=== PATIENT | female | born 1945 | race Caucasian/White ===

== ENCOUNTER 2017-05-03 12:09 | Emergency (ER) | payer OTHER ==
[~2017-05-03] VITALS: Ht 170.2 cm; Wt 122.5 kg
[~2017-05-03 12:09] MED LIST: AMLODIPINE PO; ANT12.5 PO; BENAZEPRIL PO; DETROL LA2 MG PO; METOPROLOL TART25 M1 PO; PRI20 PO; ZOCOR20 MG PO
[2017-05-03 14:58] LABS: BASOPHIL % 1.6 % (0-2); PLATELET COUNT 227 x10^3mcL (130-400)
[2017-05-03 15:02] LABS: RED CELL DISTRIBUTION WIDTH 14.8 % (11.5-14.5)
[2017-05-03 15:03] LABS: CARBON DIOXIDE 27.5 mmol/L (21-32)
[2017-05-03 15:07] LABS: BILIRUBIN TOTAL 0.7 mg/dL (0.20-1.00)
[2017-05-03 15:12] LABS: ALBUMIN 3.2 g/dL (3.4-5.0)
[2017-05-03 17:33] VITALS: BP 138/76
[2017-05-03 22:39] LABS: ERYTHROCYTE SED RATE 59 mm/hr (0-30)
== END 2017-05-03 18:13 | disposition home or self-care (01) ==
LOC: ED 12:09
PROVIDERS: Emergency Medicine
DX: M25.562 Pain in left knee (principal); I48.91 Unspecified atrial fibrillation; K21.9 Gastro-esophageal reflux disease without esophagitis; I10 Essential (primary) hypertension; F17.200 Nicotine dependence, unspecified, uncomplicated; Z71.6 Tobacco abuse counseling; Z88.5 Allergy status to narcotic agent; Z88.8 Allergy status to other drugs, medicaments and biological substances
CPT/HCPCS: 36415; 99406; Q0092

== ENCOUNTER 2017-05-15 14:03 | Inpatient (IN) | payer OTHER ==
[~2017-05-15] VITALS: Ht 170.2 cm; Wt 103.9 kg
[2017-05-15 15:18] LABS: BASOPHIL % 0.5 % (0-2); PLATELET COUNT 171 x10^3mcL (130-400); RED CELL DISTRIBUTION WIDTH 14.4 % (11.5-14.5)
[2017-05-15 15:22] LABS: CALCIUM 8.7 mg/dL (8.5-10.1); CARBON DIOXIDE 27.7 mmol/L (21-32); CHLORIDE SERUM 104 mmol/L (98-107); CREATININE SERUM 0.9 mg/dL (0.6-1.0); GFR1 > 60 mL/min; GLUCOSE SERUM 108 mg/dL (74-106); POTASSIUM SERUM 3.5 mmol/L (3.5-5.1); SODIUM SERUM 139 mmol/L (136-145)
[2017-05-15 15:26] LABS: ALKALINE PHOSPHATASE 103 U/L (46-116); ALT/SGPT 22 U/L (14-59); AST/SGOT 31 U/L (15-37); BILIRUBIN TOTAL 0.7 mg/dL (0.20-1.00); LIPASE 88 IU/L (73-393); TOTAL PROTEIN, SERUM 7.1 g/dL (6.4-8.2)
[2017-05-15 15:33] LABS: ALBUMIN 2.8 g/dL (3.4-5.0)
[2017-05-15] MEDS ORDERED: BENAZEPRIL HYDR20 M1 PO (15:47)
[2017-05-15] MEDS ORDERED: LASIX20 MG PO (15:48)
[2017-05-15] MEDS ORDERED: BENAZEPRIL HYDR10 M1 PO (17:31)
[2017-05-15] MEDS ORDERED: GOOD SENSE ASPI81 M3 PO (17:32)
[2017-05-15] MEDS ORDERED: FUROSEMIDE20 MG PO (17:32)
[2017-05-15] MEDS ORDERED: MONTELUKAST SOD10 M1 PO (17:33)
[2017-05-15 17:40] VITALS: BP 116/75
[2017-05-15 17:52] LABS: CHOLESTEROL/HDL RATIO 3.7; MAGNESIUM 1.6 mg/dL (1.8-2.4); PHOSPHOROUS 3.6 mg/dL (2.5-4.9)
[2017-05-15 17:57] LABS: T3 TOTAL 1.1 ng/mL
[2017-05-15 17:58] LABS: FREE T4 1.21 ng/dL (0.76-1.46); FREE THYROXINE INDEX 2.9 ug/dL (1.4-4.5); T4(THYROXINE) 8.5 ug/dL (4.7-13.3)
[2017-05-15 20:00] VITALS: BP 110/50
[2017-05-15 21:58] VITALS: BP 118/71
[2017-05-15 22:52] LABS: UA SPECIFIC GRAVITY 1.015 (1.005-1.035); microscopic required? YES; urine erythrocyte 1+ (NEGATIVE)
[2017-05-15 23:00] LABS: AMPHETAMINE QUAL UR NONE DETECTED (NEG <=1000)
[2017-05-16 05:18] VITALS: BP 129/76
[2017-05-16 06:55] LABS: CALCIUM 8.2 mg/dL (8.5-10.1); CARBON DIOXIDE 27.8 mmol/L (21-32); CHLORIDE SERUM 106 mmol/L (98-107); CREATININE SERUM 0.9 mg/dL (0.6-1.0); GFR1 > 60 mL/min; GLUCOSE SERUM 89 mg/dL (74-106); POTASSIUM SERUM 3.8 mmol/L (3.5-5.1); SODIUM SERUM 139 mmol/L (136-145)
[2017-05-16 10:02] VITALS: BP 102/60
[2017-05-16 13:14] VITALS: BP 123/83
[2017-05-16 16:31] VITALS: BP 125/63
[2017-05-16 21:33] VITALS: BP 149/68
[2017-05-17 05:21] VITALS: BP 156/60
[2017-05-17 06:02] LABS: BASOPHIL % 0.4 % (0-2); PLATELET COUNT 153 x10^3mcL (130-400)
[2017-05-17 06:15] LABS: ALBUMIN 2.6 g/dL (3.4-5.0); CALCIUM 8.8 mg/dL (8.5-10.1); CARBON DIOXIDE 29.9 mmol/L (21-32); MAGNESIUM 1.8 mg/dL (1.8-2.4); PHOSPHOROUS 3.4 mg/dL (2.5-4.9); POTASSIUM SERUM 4.1 mmol/L (3.5-5.1)
[2017-05-17 07:30] VITALS: BP 134/77
[2017-05-17] MEDS ORDERED: APAP/OXYCODONE1 TA4 PO (14:43)
[2017-05-17 15:07] VITALS: BP 130/70
[2017-05-17 15:16] VITALS: BP 130/70
== END 2017-05-17 16:10 | disposition home or self-care (01) | DRG 391 ==
LOC: ED 14:03 → DU 16:14
PROVIDERS: Emergency Medicine; ADMIT Family Medicine
DX: K52.9 Noninfective gastroenteritis and colitis, unspecified (principal); E43 Unspecified severe protein-calorie malnutrition; E83.42 Hypomagnesemia; K21.9 Gastro-esophageal reflux disease without esophagitis; E78.5 Hyperlipidemia, unspecified; I10 Essential (primary) hypertension; I25.2 Old myocardial infarction; F17.210 Nicotine dependence, cigarettes, uncomplicated; F10.10 Alcohol abuse, uncomplicated; Z68.35 Body mass index [BMI] 35.0-35.9, adult; Z79.82 Long term (current) use of aspirin
CPT/HCPCS: 83880; 84439; J1170; J1885; J2405; J2543; J2550; J3010; J3490; J7030

== ENCOUNTER 2017-08-13 16:39 | Emergency (ER) | payer OTHER ==
[~2017-08-13] VITALS: Ht 170.2 cm; Wt 121.1 kg
[~2017-08-13 16:39] MED LIST changes: +APAP/OXYCODONE1 TA4 PO; +BENAZEPRIL HYDR10 M1 PO; +BENAZEPRIL HYDR20 M1 PO; +FUROSEMIDE20 MG PO; +GOOD SENSE ASPI81 M3 PO; +LASIX20 MG PO; +MONTELUKAST SOD10 M1 PO
[2017-08-13 18:25] VITALS: BP 122/71
== END 2017-08-13 18:25 | disposition home or self-care (01) ==
LOC: ED 16:39
DX: Z76.0 Encounter for issue of repeat prescription (principal); I48.91 Unspecified atrial fibrillation; I10 Essential (primary) hypertension; K21.9 Gastro-esophageal reflux disease without esophagitis; J44.9 Chronic obstructive pulmonary disease, unspecified; F17.210 Nicotine dependence, cigarettes, uncomplicated; Z71.6 Tobacco abuse counseling; Z88.5 Allergy status to narcotic agent
CPT/HCPCS: 99406

== ENCOUNTER 2017-11-13 19:03 | Observation (INO) | payer OTHER ==
[~2017-11-13] VITALS: Ht 170.2 cm; Wt 116.1 kg
[~2017-11-13 19:03] MED LIST changes: -LASIX20 MG PO
[2017-11-13 21:15] LABS: BASOPHIL % 0.4 % (0-2); PLATELET COUNT 176 x10^3mcL (130-400); RED CELL DISTRIBUTION WIDTH 14.4 % (11.5-14.5)
[2017-11-13 21:30] LABS: CALCIUM 8.7 mg/dL (8.5-10.1); CARBON DIOXIDE 26.8 mmol/L (21-32); CREATININE SERUM 1.4 mg/dL (0.6-1.0); POTASSIUM SERUM 3.5 mmol/L (3.5-5.1)
[2017-11-13 21:34] LABS: BILIRUBIN TOTAL 0.9 mg/dL (0.20-1.00); TOTAL PROTEIN, SERUM 7.2 g/dL (6.4-8.2)
[2017-11-13] MEDS ORDERED: XARELTO STARTER20 MG (21:56)
[2017-11-13] MEDS ORDERED: BENAZEPRIL HYDR20 M1 (21:57)
[2017-11-13] MEDS ORDERED: LASIX20 MG (21:57)
[2017-11-14 00:39] VITALS: BP 149/96
[2017-11-14 00:43] VITALS: Ht 170.2 cm; Wt 116.1 kg
[2017-11-14 01:00] VITALS: BP 149/96
[2017-11-14 02:24] LABS: T3 TOTAL 1.17 ng/mL
[2017-11-14 03:00] LABS: microscopic required? YES; urine erythrocyte 2+ (NEGATIVE)
[2017-11-14 03:10] LABS: CHOLESTEROL/HDL RATIO 3.6; MAGNESIUM 1.5 mg/dL (1.8-2.4); PHOSPHOROUS 3.1 mg/dL (2.5-4.9)
[2017-11-14 03:14] LABS: AMPHETAMINE QUAL UR NONE DETECTED (NEG <=1000)
[2017-11-14 04:06] LABS: FREE T4 1.45 ng/dL (0.76-1.46); FREE THYROXINE INDEX 3.7 ug/dL (1.4-4.5); T4(THYROXINE) 10.5 ug/dL (4.7-13.3)
[2017-11-14 06:33] VITALS: BP 131/94
[2017-11-14 08:38] LABS: BASOPHIL % 0.1 % (0-2); PLATELET COUNT 182 x10^3mcL (130-400); RED CELL DISTRIBUTION WIDTH 14.4 % (11.5-14.5)
[2017-11-14 09:18] LABS: CALCIUM 8.9 mg/dL (8.5-10.1); CARBON DIOXIDE 24.6 mmol/L (21-32); CREATININE SERUM 1.3 mg/dL (0.6-1.0); POTASSIUM SERUM 3.9 mmol/L (3.5-5.1)
[2017-11-14 09:23] VITALS: BP 124/77
[2017-11-14 13:56] VITALS: BP 103/76
[2017-11-14] MEDS ORDERED: LEVAQUIN750 MG PO (15:05)
[2017-11-14] MEDS ORDERED: CULTURELLE DIGE1 CAP PO (15:05)
[2017-11-14] MEDS ORDERED: MEDDP PO (15:07)
[2017-11-14] MEDS ORDERED: LASIX20 MG PO (15:22)
[2017-11-14 15:24] VITALS: BP 103/76
== END 2017-11-14 16:42 | disposition home or self-care (01) | DRG 683 ==
LOC: ED 19:03 → DU 23:04
PROVIDERS: Emergency Medicine; Family Medicine
DX: N17.0 Acute kidney failure with tubular necrosis (principal); N39.0 Urinary tract infection, site not specified; E44.0 Moderate protein-calorie malnutrition; Z68.41 Body mass index [BMI] 40.0-44.9, adult; I48.91 Unspecified atrial fibrillation; R73.03 Prediabetes; E83.42 Hypomagnesemia; E78.5 Hyperlipidemia, unspecified; E66.01 Morbid (severe) obesity due to excess calories; I10 Essential (primary) hypertension; R09.81 Nasal congestion; J02.9 Acute pharyngitis, unspecified; F17.218 Nicotine dependence, cigarettes, with other nicotine-induced disorders; Z79.891 Long term (current) use of opiate analgesic; Z79.82 Long term (current) use of aspirin; Z79.01 Long term (current) use of anticoagulants
CPT/HCPCS: 83880; 84439; 87804; G0378; J1170; J1956; J2405; J2920; J2930; J3475; J7030; J7040; J7620; Q0092

== ENCOUNTER 2018-01-05 01:07 | Emergency (ER) | payer OTHER ==
[~2018-01-05] VITALS: Ht 167.6 cm; Wt 123.8 kg
[~2018-01-05 01:07] MED LIST changes: +BENAZEPRIL HYDR20 M1; +CULTURELLE DIGE1 CAP PO; +LASIX20 MG; +LASIX20 MG PO; +LEVAQUIN750 MG PO; +MEDDP PO; +XARELTO STARTER20 MG
[2018-01-05 01:16] VITALS: Ht 167.6 cm; Wt 123.8 kg
[2018-01-05 02:50] LABS: CALCIUM 8.2 mg/dL (8.5-10.1); CARBON DIOXIDE 30.4 mmol/L (21-32); CREATININE SERUM 1.2 mg/dL (0.6-1.0); POTASSIUM SERUM 3.1 mmol/L (3.5-5.1)
[2018-01-05 02:54] LABS: BASOPHIL % 0.5 % (0-2); PLATELET COUNT 202 x10^3mcL (130-400)
[2018-01-05 02:55] LABS: BILIRUBIN TOTAL 0.32 mg/dL (0.20-1.00); RED CELL DISTRIBUTION WIDTH 16.6 % (11.5-14.5); TOTAL PROTEIN, SERUM 6.6 g/dL (6.4-8.2)
[2018-01-05 02:56] LABS: ALBUMIN 2.7 g/dL (3.4-5.0)
[2018-01-05 04:38] VITALS: BP 130/55
== END 2018-01-05 04:38 | disposition home or self-care (01) ==
LOC: ED 01:07
PROVIDERS: Emergency Medicine
DX: I10 Essential (primary) hypertension (principal); E87.6 Hypokalemia; F17.210 Nicotine dependence, cigarettes, uncomplicated; K21.9 Gastro-esophageal reflux disease without esophagitis; Z88.5 Allergy status to narcotic agent; Z86.73 Personal history of transient ischemic attack (TIA), and cerebral infarction without residual deficits
CPT/HCPCS: J2405; J3010; Q0092

== ENCOUNTER 2018-02-24 14:27 | Emergency (ER) | payer OTHER ==
[~2018-02-24] VITALS: Ht 167.6 cm; Wt 117.9 kg
[~2018-02-24 14:27] MED LIST changes: +LAC PO; +LOSARTAN POTASS25 M1 PO
[2018-02-24 14:43] VITALS: Ht 167.6 cm; Wt 117.9 kg
[2018-02-24 17:25] VITALS: BP 151/89
== END 2018-02-24 17:32 | disposition home or self-care (01) ==
LOC: ED 14:27
DX: G47.00 Insomnia, unspecified (principal); G62.9 Polyneuropathy, unspecified; R60.0 Localized edema; F17.200 Nicotine dependence, unspecified, uncomplicated; I10 Essential (primary) hypertension; K21.9 Gastro-esophageal reflux disease without esophagitis; Z71.6 Tobacco abuse counseling; Z88.6 Allergy status to analgesic agent
CPT/HCPCS: 99406; Q0092

== ENCOUNTER 2018-06-07 20:17 | Emergency (ER) | payer OTHER ==
[~2018-06-07] VITALS: Ht 294.6 cm; Wt 120.7 kg
[2018-06-07 21:02] VITALS: Ht 294.6 cm; Wt 120.7 kg
[2018-06-07 23:35] VITALS: BP 145/92
== END 2018-06-07 23:35 | disposition home or self-care (01) ==
LOC: ED 20:17
DX: S46.912A Strain of unspecified muscle, fascia and tendon at shoulder and upper arm level, left arm, initial encounter (principal); I10 Essential (primary) hypertension; K21.9 Gastro-esophageal reflux disease without esophagitis; F41.9 Anxiety disorder, unspecified; I48.91 Unspecified atrial fibrillation; Z88.5 Allergy status to narcotic agent; X58.XXXA Exposure to other specified factors, initial encounter; Y93.89 Activity, other specified; Y92.89 Other specified places as the place of occurrence of the external cause; Y99.8 Other external cause status
CPT/HCPCS: J3010; Q0092